=== PATIENT | female | born 1975 | race Caucasian/White ===

== ENCOUNTER 2023-10-22 20:02 | Emergency (ER) | payer SELFPAY ==
[~2023-10-22] VITALS: Ht 170.2 cm; Wt 47.6 kg
[2023-10-22 20:29] VITALS: O2SAT 96
[2023-10-22] MEDS ORDERED: DOXYCYCLINE HY100 MG PO (21:18)
== END 2023-10-22 21:31 | disposition home or self-care (01) ==
LOC: FSED 20:08
DX: L03.114 Cellulitis of left upper limb (principal); S50.862A Insect bite (nonvenomous) of left forearm, initial encounter; K50.90 Crohn's disease, unspecified, without complications; K21.9 Gastro-esophageal reflux disease without esophagitis; F17.210 Nicotine dependence, cigarettes, uncomplicated
CPT/HCPCS: 99283